=== PATIENT | male | born 1965 | race Caucasian/White ===

== ENCOUNTER 2017-05-31 14:43 | Emergency (ER) | payer OTHER, BC ==
[~2017-05-31] VITALS: Ht 182.9 cm; Wt 103.6 kg
[2017-05-31 14:44] VITALS: BP 135/88
[2017-05-31] MEDS ORDERED: MULT1TAB18 PO (14:55)
[2017-05-31 15:17] LABS: BASO # 0.1 K/mm3 (0.0-0.2); BASO % 0.7 % (0.0-1.0); EOS # 0.2 K/mm3 (0.0-0.50); EOS % 1.9 % (0.0-3.0); LARGE UNSTAINED CELL # 0.2 K/mm3 (0.0-0.4); LARGE UNSTAINED CELL % 2.2 % (0.0-4.0); LYMPH % 28.6 % (24.0-44.0); MEAN CORPUSCULAR HEMOGLOBIN 29.3 pg (27.0-33.0); MEAN CORPUSCULAR HGB CONC 34.4 g/dl (32.0-36.5); MEAN CORPUSCULAR VOLUME 85.3 fl (80.0-96.0); MONO # 0.7 K/mm3 (0.0-0.8); MONO % 6.6 % (0.0-5.0); NEUTROPHILS # 6.4 K/mm3 (1.8-7.7); NEUTROPHILS % 59.9 % (36.0-66.0); PLATELET COUNT, AUTOMATED 268 k/mm3 (150-450); RED CELL DISTRIBUTION WIDTH 13.3 % (11.5-14.5); WHITE BLOOD COUNT 10.6 K/mm3 (4.0-10.0)
--- NOTE | 2017-05-31 15:25 | REP ---
Clinical: Chest pain . Comparison: None . Findings: The mediastinum and cardiac silhouette are stable and within normal limits for portable technique. The lung nevarez are clear without acute consolidation, effusion, or pneumothorax. Skeletal structures are intact. Impression: No acute cardiopulmonary process appreciated. Signed by Andi Morales MD 05/31/2017 03:17 P
[2017-05-31 15:45] LABS: ALBUMIN 3.6 GM/DL (3.2-5.2); ALBUMIN/GLOBULIN RATIO 0.97 (1.00-1.93); ALKALINE PHOSPHATASE 60 U/L (45-117); ALT/SGPT 26 U/L (12-78); ANION GAP 12 MEQ/L (8-16); AST/SGOT 15 U/L (15-37); BILIRUBIN,DIRECT < 0.1 MG/DL (0.0-0.2); BILIRUBIN,TOTAL 0.3 MG/DL (0.2-1.0); BLOOD UREA NITROGEN 15 MG/DL (7-18); CALCIUM LEVEL 8.8 MG/DL (8.5-10.1); CARBON DIOXIDE LEVEL 21 MEQ/L (21-32); CHLORIDE LEVEL 104 MEQ/L (98-107); CREATININE FOR GFR 0.75 MG/DL (0.70-1.30); GLOMERULAR FILTRATION RATE > 60.0 (>56); GLUCOSE, FASTING 124 MG/DL (70-105); POTASSIUM SERUM 3.7 MEQ/L (3.5-5.1); SODIUM LEVEL 137 MEQ/L (136-145); TOTAL PROTEIN 7.3 GM/DL (6.4-8.2)
[2017-05-31] MEDS ORDERED: NS 500 ML IV ONE (16:00)
[2017-05-31] MEDS ORDERED: ASPIRIN 81 MG CHEW TABLET PO ONE (16:00)
[2017-05-31] MEDS ORDERED: GI COCKTAIL 50ML BTL(HYOSCYAMINE/MAALOX/LIDOCAINE VISCOUS)(1:3:1) PO ONE (16:00)
--- NOTE | 2017-06-01 07:37 | ECGEPIP ---
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
== END 2017-05-31 18:25 | disposition home or self-care (01) ==
LOC: M ED 14:43
DX: R07.9 Chest pain, unspecified (principal); R00.0 Tachycardia, unspecified; R94.31 Abnormal electrocardiogram [ECG] [EKG]; R10.13 Epigastric pain; K92.1 Melena; M12.9 Arthropathy, unspecified; F17.210 Nicotine dependence, cigarettes, uncomplicated; Z88.0 Allergy status to penicillin; Z82.49 Family history of ischemic heart disease and other diseases of the circulatory system

== ENCOUNTER 2019-05-24 20:23 | Emergency (ER) | payer OTHER, BC ==
[~2019-05-24] VITALS: Ht 182.9 cm; Wt 100.0 kg
[~2019-05-24 20:23] MED LIST: MULT1TAB18 PO
[2019-05-24 20:47] LABS: BASO # 0.1 10^3/uL (0.0-0.2); BASO % 0.4 % (0.0-1.0); EOS # 0.3 10^3/uL (0.0-0.50); EOS % 1.4 % (0.0-3.0); HEMATOCRIT 46.8 % (42.0-52.0); HEMOGLOBIN 16.1 g/dl (13.5-17.5); LYMPH # 4.2 10^3/uL (1.5-4.5); LYMPH % 22.7 % (24.0-44.0); MEAN CORPUSCULAR HEMOGLOBIN 29.3 pg (27.0-33.0); MEAN CORPUSCULAR HGB CONC 34.4 g/dl (32.0-36.5); MEAN CORPUSCULAR VOLUME 85.1 fl (80.0-96.0); MONO # 1.7 10^3/uL (0.0-0.8); MONO % 9.2 % (0.0-5.0); NEUTROPHILS % 65.9 % (36.0-66.0); PLATELET COUNT, AUTOMATED 277 10^3/uL (150-450); WHITE BLOOD COUNT 18.3 10^3/uL (4.0-10.0)
[2019-05-24 20:58] LABS: INR 0.95; PROTHROMBIN TIME 12.4 SECONDS (11.8-14.0)
[2019-05-24 21:01] LABS: D-DIMER QUANT 684.9 ng/ml (<500)
[2019-05-24 21:14] LABS: BLOOD UREA NITROGEN 19 MG/DL (7-18); CARBON DIOXIDE LEVEL 27 MEQ/L (21-32); CHLORIDE LEVEL 105 MEQ/L (98-107); CK-MB VALUE MASS 1.1 NG/ML (<3.6); CPK CREATINE PHOSPHOKINASE 166 U/L (39-308); CREATININE FOR GFR 0.93 MG/DL (0.70-1.30); GLOMERULAR FILTRATION RATE > 60.0 (>56); GLUCOSE, FASTING 111 MG/DL (70-100); MB/CK RELATIVE INDEX 0.66 (< OR =4); POTASSIUM SERUM 3.9 MEQ/L (3.5-5.1); SODIUM LEVEL 139 MEQ/L (136-145); TROPONIN I < 0.02 NG/ML (< 0.10)
[2019-05-24] MEDS ORDERED: NS 1,000 ML IV ONE (21:15)
[2019-05-24] MEDS ORDERED: ISOVUE-370 76% 100ML VIAL (Q9967) As Ordered ONE (21:22)
[2019-05-24] MEDS ORDERED: KETOROLAC 30 MG/ML VIAL (J1885) IV ONE (21:30)
[2019-05-24 21:31] LABS: PARTIAL THROMBOPLASTIN TIME 34.3 SECONDS (25.0-38.4)
--- NOTE | 2019-05-24 21:38 | REP ---
Clinical: Acute chest pain. Comparison: 05/31/2017. Findings: Mediastinum and cardiac silhouette are normal. Lung nevarez demonstrate chronic interstitial changes. Very subtle superimposed left basilar atelectasis cannot be excluded. No focal consolidation, effusion, or pneumothorax. Skeletal structures intact. Impression: Chronic stable changes. Possible trace left basilar atelectasis. Electronically Signed by Andi Morales MD 05/24/2019 09:30 P
--- NOTE | 2019-05-24 21:47 | REP ---
Clinical: Pain. Technique: AP and lateral views of the right knee. Findings: No acute fracture or dislocation. No subcutaneous emphysema or radiodense foreign body. Impression: Normal age-appropriate right knee radiographs. Electronically Signed by Andi Morales MD 05/24/2019 09:39 P
--- NOTE | 2019-05-24 22:04 | REP ---
Clinical: Acute chest pain. Technique: Axial contrast enhanced images from the thoracic inlet to the upper abdomen using 100 ml Isovue 370 intravenous contrast material with coronal and sagittal re-formations. Findings: Satisfactory enhancement of the pulmonary vasculature is achieved and no filling defects are identified to suggest pulmonary embolus. Thoracic aorta is normal caliber without aneurysm or dissection. 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 Heart and pericardium are normal. Very minimal lingular and scattered atelectasis noted without focal consolidation or effusion. No pneumothorax. No adenopathy. Musculoskeletal structures are intact. Impression: No evidence for pulmonary embolus. Minimal lingular and scattered atelectasis. Congenital aberrant right subclavian artery. Electronically Signed by Andi Morales MD 05/24/2019 09:54 P
--- NOTE | 2019-05-24 22:09 | REPVR ---
EXAM: US Duplex Right Lower Extremity Veins, Limited EXAM DATE/TIME: 05/24/2019 9:36 PM CLINICAL HISTORY: 54 years old, male; Pain; Leg, upper; Right; Additional info: Swell/pain TECHNIQUE: Imaging protocol: Real-time Duplex ultrasound of the Right Lower Extremity with 2-D price scale, color Doppler flow and spectral waveform analysis. Limited exam was focused on the right lower extremity veins. COMPARISON: No relevant prior studies available. FINDINGS: Right deep veins: Unremarkable. The common femoral, femoral and popliteal veins are patent without thrombus. Normal Doppler waveforms. Normal compressibility and/or augmentation response. Right superficial veins: Unremarkable. Saphenofemoral junction is patent without thrombus. Soft tissues: Unremarkable. IMPRESSION: No sonographic evidence of deep vein thrombosis. Electronically signed by: Ethan Travis On 05/24/2019 22:08:41 PM
[2019-05-25 00:30] VITALS: BP 122/73
--- NOTE | 2019-05-25 11:20 | ECGEPIP ---
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
== END 2019-05-25 00:49 | disposition left against medical advice (07) ==
LOC: M ED 20:23
DX: R07.9 Chest pain, unspecified (principal); M25.461 Effusion, right knee; M25.561 Pain in right knee; R00.0 Tachycardia, unspecified; F17.200 Nicotine dependence, unspecified, uncomplicated; Z87.828 Personal history of other (healed) physical injury and trauma; Z88.0 Allergy status to penicillin
CPT/HCPCS: 71045; 71275; 73560; 80048; 82550; 82553; 84484; 85025; 85379; 85610; 85730; 93005; 93041; 93971; 94760; 96374; 99285; J1885; Q9967

== ENCOUNTER → 2020-04-10 | Outpatient (CLI) | payer OTHER, BC | LOC: M LABSMTC 13:52 | PROVIDERS: ATTEND Family Medicine | DX: Z11.59 Encounter for screening for other viral diseases (principal) | CPT/HCPCS: C9803; U0003 ==

== ENCOUNTER → 2020-12-07 | Outpatient (CLI) | payer SELFPAY | LOC: M LABSMTC 10:57 | PROVIDERS: ATTEND Pediatrics | DX: Z20.822 Contact with and (suspected) exposure to COVID-19 (principal) ==

== ENCOUNTER → 2020-12-10 | Outpatient (CLI) | payer SELFPAY | LOC: M LABSMTC 13:31 | PROVIDERS: ATTEND Pediatrics | DX: Z20.822 Contact with and (suspected) exposure to COVID-19 (principal) ==

== ENCOUNTER → 2020-12-14 | Outpatient (CLI) | payer SELFPAY | LOC: M LABSMTC 10:26 | PROVIDERS: ATTEND Pediatrics | DX: Z20.822 Contact with and (suspected) exposure to COVID-19 (principal) ==

== ENCOUNTER → 2020-12-15 | Outpatient (CLI) | payer SELFPAY | LOC: M LABSMTC 11:22 | PROVIDERS: ATTEND Pediatrics | DX: Z20.822 Contact with and (suspected) exposure to COVID-19 (principal) ==

== ENCOUNTER → 2020-12-19 | Outpatient (CLI) | payer SELFPAY | LOC: M LABSMTC 11:28 | PROVIDERS: ATTEND Pediatrics | DX: Z20.822 Contact with and (suspected) exposure to COVID-19 (principal) ==

== ENCOUNTER → 2022-08-22 | Outpatient (CLI) | payer BC, OTHER | LOC: M SOG 08:42 | PROVIDERS: ATTEND Orthopaedic Surgery Adult Reconstructive Orthopaedic Surgery | DX: M25.561 Pain in right knee (principal); M25.562 Pain in left knee ==

== ENCOUNTER 2023-12-18 06:07 | Day surgery (SDC) | payer OTHER ==
[~2023-12-18] VITALS: Ht 182.9 cm; Wt 111.6 kg
[~2023-12-18 06:07] MED LIST changes: +ATOR80TA59 PO; +D3 H2000 PO; +JARD1TAB3 PO; +LIDOCAINE W/EPINEPHRINE 1% 20ML VIAL XX ONE; +SODIUM BICARBONATE 8.4% INJ 50MEQ 50ML VIAL XX ONE; +THERTAB52 PO
[2023-12-18] MEDS ORDERED: BACITRACIN OINTMENT 30GM TUBE As Ordered ONE (07:28)
[2023-12-18 08:55] VITALS: BP 136/80; TEMP 98.7; O2SAT 96
== END 2023-12-18 08:56 | disposition home or self-care (01) ==
LOC: M SDC 06:07
PROVIDERS: ATTEND Orthopaedic Surgery Hand Surgery
DX: M65.311 Trigger thumb, right thumb (principal); M65.321 Trigger finger, right index finger; M65.331 Trigger finger, right middle finger; Z88.0 Allergy status to penicillin

== ENCOUNTER 2024-02-02 07:27 | Day surgery (SDC) | payer OTHER ==
[~2024-02-02] VITALS: Ht 182.9 cm; Wt 112.0 kg
[~2024-02-02 07:27] MED LIST changes: -LIDOCAINE W/EPINEPHRINE 1% 20ML VIAL XX ONE; -SODIUM BICARBONATE 8.4% INJ 50MEQ 50ML VIAL XX ONE
[2024-02-02] MEDS: NS 1,000 ML IV ONE (07:52)
[2024-02-02] MEDS ORDERED: propofoL 500 MG/50 ML VIAL As Ordered ONE (08:40)
[2024-02-02] MEDS ORDERED: LIDOCAINE 2% 100MG/5ML SDV (FOR ANES.) As Ordered ONE (08:40)
[2024-02-02 09:14] VITALS: TEMP 97.1
[2024-02-02 09:29] VITALS: BP 104/57; O2SAT 97
== END 2024-02-02 09:35 | disposition home or self-care (01) ==
LOC: M OPP 07:27
PROVIDERS: ATTEND Surgery
DX: Z12.11 Encounter for screening for malignant neoplasm of colon (principal); D12.6 Benign neoplasm of colon, unspecified; Z87.891 Personal history of nicotine dependence; E11.9 Type 2 diabetes mellitus without complications; Z79.02 Long term (current) use of antithrombotics/antiplatelets; Z79.84 Long term (current) use of oral hypoglycemic drugs; Z88.0 Allergy status to penicillin

== ENCOUNTER 2025-03-08 08:57 | Emergency (ER) | payer OTHER ==
[~2025-03-08] VITALS: Ht 182.9 cm; Wt 112.4 kg
[2025-03-08 10:03] LABS: HEMATOCRIT 53.1 % (42.0-52.0); MEAN CORPUSCULAR HEMOGLOBIN 28.7 pg (27.0-33.0); MEAN CORPUSCULAR HGB CONC 33.9 g/dl (32.0-36.5); MEAN CORPUSCULAR VOLUME 84.6 fl (80.0-96.0); PLATELET COUNT, AUTOMATED 289 10^3/uL (150-450); RED BLOOD COUNT 6.28 10^6/uL (4.30-6.10); WHITE BLOOD COUNT 11.5 10^3/uL (4.0-10.0)
[2025-03-08 10:11] LABS: CK-MB VALUE MASS < 1.0 NG/ML (<3.6); LIPASE 68 U/L (12-53)
[2025-03-08 10:13] LABS: ALBUMIN 3.8 G/DL (3.2-5.2); ALKALINE PHOSPHATASE 57 U/L (40-129); ALT/SGPT 26 U/L (7.0-40); AST/SGOT 22 U/L (<34); BILIRUBIN,DIRECT < 0.1 MG/DL (<0.4); BILIRUBIN,TOTAL 0.4 MG/DL (0.3-1.2); TOTAL PROTEIN 7.7 G/DL (5.7-8.2)
[2025-03-08 10:20] LABS: CPK CREATINE PHOSPHOKINASE 92 U/L (46-171); MB/CK RELATIVE INDEX 1.08 (< OR =4)
[2025-03-08 10:51] LABS: ATYPICAL LYMPH 4 % (0-5); LYMPHOCYTES 26 % (16-44); MONOCYTES 3 % (0-5); NEUTROPHILS 67 % (28-66)
[2025-03-08 10:53] LABS: PLATELET ESTIMATE NORMAL (NORMAL)
[2025-03-08 11:16] LABS: CK-MB VALUE MASS < 1.0 NG/ML (<3.6)
[2025-03-08 11:17] LABS: CPK CREATINE PHOSPHOKINASE 85 U/L (46-171); MB/CK RELATIVE INDEX 1.17 (< OR =4)
[2025-03-08] MEDS ORDERED: ISOVUE-370 76% 100ML VIAL As Ordered ONE (12:34)
[2025-03-08] MEDS: NS (Normal Saline) 0.9% 1,000 ML IV ONE (12:35)
[2025-03-08] MEDS ORDERED: SIME1CAP3 PO (14:02)
[2025-03-08] MEDS ORDERED: MIRA3350 PO (14:02)
[2025-03-08] MEDS: MAGNESIUM CITRATE 300ML BTL PO ONE (14:15)
[2025-03-08 14:16] VITALS: BP 128/85; TEMP 97.1; O2SAT 97
== END 2025-03-08 14:20 | disposition home or self-care (01) ==
LOC: M ED 08:57
DX: R07.9 Chest pain, unspecified (principal); K59.00 Constipation, unspecified; E11.9 Type 2 diabetes mellitus without complications; F17.200 Nicotine dependence, unspecified, uncomplicated; M43.17 Spondylolisthesis, lumbosacral region; Z79.02 Long term (current) use of antithrombotics/antiplatelets; Z79.899 Other long term (current) drug therapy
CPT/HCPCS: 36415; 71045; 74018; 74177; 80047; 80076; 82550; 82553; 83690; 84484; 85025; 93005; 93041; 94760; 99285; Q9967